=== PATIENT | female | born 1980 | race Asian ===

== ENCOUNTER 2017-01-11 08:05 | Emergency (ER) | payer OTHER ==
[~2017-01-11] VITALS: Ht 157.5 cm; Wt 53.5 kg
[2017-01-11 08:11] VITALS: Ht 157.5 cm; Wt 53.5 kg
[2017-01-11] MEDS ORDERED: RALT400T4 PO (08:39)
[2017-01-11] MEDS ORDERED: EMTR1TAB11 PO (08:39)
[2017-01-11] MEDS ORDERED: ONDA4TAB14 PO (08:39)
[2017-01-11 09:04] LABS: BASOPHIL # 0.1 10^3/ul (0.0-0.1); BASOPHILS % 1.1 % (0.0-2.0); EOSINOPHILS # 0.1 10^3/ul (0.0-0.5); EOSINOPHILS % 1.9 % (0.0-7.0); LYMPHOCYTES # 1.6 10^3/ul (0.8-2.9); LYMPHOCYTES % 28.8 % (15.0-51.0); MEAN CORPUSCULAR HEMOGLOBIN 29.1 pg (29.0-33.0); MEAN CORPUSCULAR HGB CONC 33.3 g/dl (32.0-37.0); MEAN CORPUSCULAR VOLUME 87.4 fl (82.0-101.0); MEAN PLATELET VOLUME 9.2 fl (7.4-10.4); MONOCYTE # 0.3 10^3/ul (0.3-0.9); NEUTROPHIL # 3.5 10^3/ul (1.6-7.5); PLATELET COUNT 260 10^3/UL (140-415); RED BLOOD COUNT 5.15 10^6/ul (4.20-5.40); RED CELL DISTRIBUTION WIDTH 11.6 % (11.5-14.5); WHITE BLOOD COUNT 5.7 10^3/ul (4.8-10.8)
--- NOTE | 2017-01-11 09:24 | ERD ---
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 She states that she was drawing blood on HIV positive hepatitis B and C positive patient. She states that when she pressed the retraction of the needle it slid over her finger. She had a small excoriation to the skin with no active bleeding. The needlepoint did not stick into her skin. She is concerned about exposure has thoroughly irrigated and washed the finger. Her tetanus is up-to-date. Her vaccinations are up-to-date. ROS All systems reviewed and are negative except as per history of present illness. Medications Home Meds Active Scripts Ondansetron (Ondansetron Odt) 4 Mg Tab.rapdis, 4 MG PO Q6H Y for NAUSEA AND/OR VOMITING, #30 TAB Prov:MICHAEL BRONSON MD 01/11/17 Raltegravir Potassium* (Isentress*) 400 Mg Tablet, 400 MG PO BID for 28 Days, TAB Prov:MICHAEL BRONSON MD 01/11/17 Emtricitabine-Tenofovir* (Truvada*) 200-300 Mg Tablet, 1 TAB PO DAILY for 28 Days, TAB Prov:MICHAEL BRONSON MD 01/11/17 Allergies Allergies: Coded Allergies: No Known Allergy (Unverified , 01/11/17) PMhx/Soc Hx Alcohol Use: No Hx Substance Use: No Hx Tobacco Use: No Smoking Status: Never smoker Physical Exam Vitals Vital Signs Date Time Temp Pulse Resp B/P Pulse Ox O2 Delivery O2 Flow Rate FiO2 01/11/17 08:11 98.8 103 18 131/60 100 Physical Exam General: Well developed, well nourished, no acute distress Head: Normocephalic, atraumatic. Eyes: EOM intact ENT: Moist mucous membranes Neck: Full ROM Respiratory: No respiratory distress Cardiovascular: Good capillary refil Abdominal: Nondistended : Deferred MSK: No edema, no unilateral swelling, 5/5 strength Neurologic: Alert and oriented, moving all extremities, normal speech, steady gait Skin: Very subtle excoriation to the lateral aspect of the right index finger without bleeding or significant break in the skin. Psych: Normal mood Result Diagram: 01/11/17 0848 Results 24 hrs Laboratory Tests Test 01/11/17 08:48 White Blood Count 5.710^3/ul Red Blood Count 5.1510^6/ul Hemoglobin 15.0g/dl Hematocrit 45.0% Mean Corpuscular Volume 87.4fl Mean Corpuscular Hemoglobin 29.1pg Mean Corpuscular Hemoglobin Concent 33.3g/dl Red Cell Distribution Width 11.6% Platelet Count 58367^3/UL Mean Platelet Volume 9.2fl Neutrophils % 62.0% Lymphocytes % 28.8% Monocytes % 6.0% Eosinophils % 1.9% Basophils % 1.1% Nucleated Red Blood Cells % 0.0/100WBC Neutrophils # 3.510^3/ul Lymphocytes # 1.610^3/ul Monocytes # 0.310^3/ul Eosinophils # 0.110^3/ul Basophils # 0.110^3/ul Nucleated Red Blood Cells # 0.010^3/ul Procedures/MDM I had a prolonged conversation with the patient regarding post exposure prophylaxis. The patient did have a potential needlestick injury from HIV- positive patient. However this was a lateral glance from the needle without direct inoculation to the finger. I believe this is a lower risk injury. However, the patient does have HIV. Unknown viral load. For this reason I did offer and recommend postexposure prophylaxis as the patient was concerned. However we do have to weigh the risks versus benefits given very low risk inoculation and exposure. I discussed the statistics with the patient including post exposure prophylaxis , level of risk of the injury. We discussed the risks of medication. The patient is unsure if she wants post exposure prophylaxis at this point. I advised that the recommendations are to initiate postexposure prophylaxis medication within the first 1-2 hours however she has up to 72 hours to initiate therapy. My recommendation if she chooses to take the medication is to start as soon as possible. She does not feel comfortable making the decision at this point. She understands the risks of delayed treatment. She additionally understands the risks of medication initiation. She would like a prescription for the medications and to think about taking the medications. I provided the patient with a printout from up-to-date about postexposure prophylaxis and recommendations. A prescription for Isentress and Truvada for 20 days has been provided to the patient as well as a prescription for Zofran. She was referred to occupational health. Her wound is thoroughly been irrigated and she is up-to-date on her tetanus. Patient will be discharged from the emergency room. She was additionally given a phone number for postexposure prophylaxis hotline to further help her with her decision-making. Baseline blood work including LFTs and hepatitis and HIV status were ordered on the patient. Departure Diagnosis: Primary Impression: Needlestick injury accident Encounter type: initial encounter Qualified Code: W27.3XXA - Needlestick injury accident, initial encounter Condition: Stable Patient Instructions: Standard Precautions: [place] and [place] Referrals: [facility] YOU HAVE RECEIVED A MEDICAL SCREENING EXAM AND THE RESULTS INDICATE THAT YOU DO NOT HAVE A CONDITION THAT REQUIRES URGENT TREATMENT IN THE EMERGENCY DEPARTMENT. FURTHER EVALUATION AND TREATMENT OF YOUR CONDITION CAN WAIT UNTIL YOU ARE SEEN IN YOUR DOCTORS OFFICE WITHIN THE NEXT 1-2 DAYS. IT IS YOUR RESPONSIBILITY TO MAKE AN APPOINTMENT FOR FOLOW-UP CARE. IF YOU HAVE A PRIMARY DOCTOR --you should call your primary doctor and schedule an appointment IF YOU DO NOT HAVE A PRIMARY DOCTOR YOU CAN CALL OUR PHYSICIAN REFERRAL HOTLINE AT IF YOU CAN NOT AFFORD TO SEE A PHYSICIAN YOU CAN CHOSE FROM THE FOLLOWING [facility] [address] [facility]. [facility] [address] [facility]. [facility] [address] [facility] [facility] [address] [facility]. [facility] [address] [facility]. [facility]. [address] [facility]. [facility] YOU HAVE RECEIVED A MEDICAL SCREENING EXAM AND THE RESULTS INDICATE THAT YOU DO NOT HAVE A CONDITION THAT REQUIRES URGENT TREATMENT IN THE EMERGENCY DEPARTMENT. FURTHER EVALUATION AND TREATMENT OF YOUR CONDITION CAN WAIT UNTIL YOU ARE SEEN IN YOUR DOCTORS OFFICE WITHIN THE NEXT 1-2 DAYS. IT IS YOUR RESPONSIBILITY TO MAKE AN APPOINTMENT FOR FOLOW-UP CARE. IF YOU HAVE A PRIMARY DOCTOR --you should call your primary doctor and schedule and appointment IF YOU DO NOT HAVE A PRIMARY DOCTOR YOU CAN CALL OUR PHYSICIAN REFERRAL HOTLINE AT . IF YOU CAN NOT AFFORD TO SEE A PHYSICIAN YOU CAN CHOSE FROM THE FOLLOWING [facility] INSTITUTIONS: [facility] [address] [place] [address] [facility] [address] [place] [address] [facility] [address] [place] [address] Additional Instructions: You should know that it is recommended to initiate postexposure prophylaxis therapy as soon as possible within the first 1-2 hours. Initiation of medication can start up to 72 hours. MICHAEL BRONSON MD Jan 11, 2017 09:24
[2017-01-11 09:27] LABS: ALANINE AMINOTRANSFERASE 30 IU/L (13-69); ALBUMIN 4.8 g/dl (3.3-4.9); ALKALINE PHOSPHATASE 53 IU/L (42-121); ASPARTATE AMINO TRANSFERASE 25 IU/L (15-46); TOTAL PROTEIN 8.4 g/dl (6.1-8.1)
== END 2017-01-11 09:07 | disposition home or self-care (01) ==
LOC: E/R 08:05
DX: S61.230A Puncture wound without foreign body of right index finger without damage to nail, initial encounter (principal); W46.0XXA Contact with hypodermic needle, initial encounter; Y92.9 Unspecified place or not applicable
CPT/HCPCS: 36415; 80076; 85025; 86703; 86706; 86803; 87340; 99284